=== PATIENT | male | born 1980 | race Caucasian/White ===

== ENCOUNTER 2017-01-17 17:04 | Emergency (ER) | payer SELFPAY ==
[~2017-01-17] VITALS: Ht 172.7 cm; Wt 117.9 kg
[~2017-01-17 17:04] MED LIST: AZIT-21 PO; CLIN300C3 PO; FLC150T PO; GUAI100L73 PO; HYDR-1231 PO; IBUP800T26 PO; MINO50CA2 PO; ONDA8TAB2 PO; PRD5T PO; SULF1TAB38 PO; TRAM50TA2 PO
--- OUTSIDE RECORDS SUMMARY | 2017-01-17 17:09 | XMS REPORT | Continuity of Care Document ---
Author Author [facility] Address Unknown Phone Unavailable Allergies Medications Problems Date Dx Coded Attending Type Code Diagnosis Diagnosed By 01/25/2009 466.0 Acute Bronchitis 01/25/2009 682.9 CELLULITIS AND ABSCESS OF UNSPECIFIED SITES 01/25/2009 BENITEZ DO KERRY K 466.0 Acute Bronchitis 01/25/2009 BENITEZ DO KERRY K 682.9 CELLULITIS AND ABSCESS OF UNSPECIFIED SITES 01/25/2009 BENITEZ DO KERRY K 466.0 Acute Bronchitis 01/25/2009 BENITEZ DO KERRY K 682.9 CELLULITIS AND ABSCESS OF UNSPECIFIED SITES 01/25/2009 KEVON WOMACK APRNINA R 466.0 Acute Bronchitis 01/25/2009 KEVON WOMACK APRNINA R 682.9 CELLULITIS AND ABSCESS OF UNSPECIFIED SITES 06/18/2010 110.9 Dermatophytosis, Of Unspecified Site 06/18/2010 111.0 Pityriasis Versicolor 06/18/2010 684 Impetigo 06/18/2010 EMMANUEL GUARDADO KERRY K 110.9 Dermatophytosis, Of Unspecified Site 06/18/2010 BENITEZ DO KERRY K 111.0 Pityriasis Versicolor 06/18/2010 BENITEZ DO KERRY K 684 Impetigo 06/18/2010 BENITEZ DO KERRY K 110.9 Dermatophytosis, Of Unspecified Site 06/18/2010 BENITEZ DO KERRY K 111.0 Pityriasis Versicolor 06/18/2010 BENITEZ DO KERRY K 684 Impetigo 06/18/2010 VU DUTTA GEORGE R 110.9 Dermatophytosis, Of Unspecified Site 06/18/2010 VU DUTTA GEORGE R 111.0 Pityriasis Versicolor 06/18/2010 VU DUTTA GEORGE R 684 Impetigo 04/08/2011 611.1 Hypertrophy Of Breast 04/08/2011 MIKE BENITEZ DOA K 611.1 Hypertrophy Of Breast 04/08/2011 KERRY BENITEZ DO 611.1 Hypertrophy Of Breast 04/08/2011 GEORGE WOMACK APRN 611.1 Hypertrophy Of Breast 08/14/2013 KERRY BENITEZ DO 780.79 fatigue 08/14/2013 KERRY BENITEZ DO 786.2 COUGH 08/14/2013 KERRY BENITEZ DO 780.79 fatigue 08/14/2013 KERRY BENITEZ DO 786.2 COUGH 08/14/2013 GEORGE WOMACK APRN 780.79 fatigue 08/14/2013 GEORGE WOMACK APRN 786.2 COUGH 12/28/2013 GEORGE WOMACK APRN 682.1 CELLULITIS AND ABSCESS OF NECK Procedures Code [place] [address] OXIM[employer] 2012 Results Encounters ACCT No. Visit Date/Time Discharge Status Pt. Type Provider Facility Loc./Unit Complaint [id number] 12/28/2013 14:51:00 12/28/2013 23: 59:59 CLS Outpatient GEORGE WOMACK APRN [id number] 12/25/2013 11:20:00 12/25/2013 23: 59:59 CLS Outpatient KERRY BENITEZ DO [id number] 08/14/2013 14:30:00 08/14/2013 23: 59:59 [place] [id number] 03/13/2012 10:35:00 03/13/2012 23: 59:59 CLS Outpatient
[2017-01-17] MEDS ORDERED: PANTOPRAZOLE 40 MG/10 ML (PROTONIX) VIAL IV ONE (17:45)
--- NOTE | 2017-01-17 17:50 | ED GI ---
General Chief Complaint: Abdominal/GI Problems Stated Complaint: STOMACH PAIN/VOMITING BLOOD Source of Information: Patient History of Present Illness Time Seen By Provider: 17:30 Initial Comments PT ARRIVES VIA POV C/O EPIGASTRIC AND LUQ PAIN /CRAMPING INTERMITTENTLY X 1 WEEK --Tuesday01/11/17 STATES HE HAD CHILLS ON TUESDAY ON TUESDAY HE BEGAN TO HAVE NAUSEA AND VOMITING AND DIARRHEA WAS BETTER OVER THE WEEKEND AND THIS MORNING THIS AFTERNOON, HE BEGAN TO HAVE NAUSEA AND VOMITED UP "BILE AND DARK BLOOD" HAS HAD DIARRHEA FOR THE LAST FEW DAYS, HAS HAD 2-3 STOOLS TODAY. NO BLACK/ BLOODY/TARRY STOOLS PT HAS HISTORY OF ULCERS AND ESOPHAGITIS 13 YEARS AGO, NO PROBLEMS SINCE THEN HAS NOT EATEN TODAY. LAST FOOD WAS BRATWURST AT 2130 LAST PM HAS BEEN AROUND PEOPLE WITH SAME SYMPTOMS PCP: PENNY Allergies and Home Medications Allergies Coded Allergies: No Known Drug Allergies (Unverified , 12/12/11) Home Medications Clindamycin Hcl 300 Mg Capsule #28 1 EACH PO QID Prescribed by: ELVIS HOGUE on 07/31/14 0838 Hydrocodone Bit/Acetaminophen 1 Tab Tablet #30 1-2 TAB PO Q6H PRN PRN PAIN Prescribed by: ELVIS HOGUE on 07/31/14 0838 Review of Systems Constitutional: no symptoms reported EENTM: No Symptoms Reported Respiratory: No Symptoms Reported Cardiovascular: No Symptoms Reported Gastrointestinal: See HPI Abdominal Pain Diarrhea Nausea Poor Appetite Vomiting Genitourinary: No Symptoms Reported Musculoskeletal: no symptoms reported Skin: no symptoms reported Psychiatric/Neurological: No Symptoms Reported Endocrine: No Symptoms Reported Hematologic/Lymphatic: See HPI Past Eqyoxck-Xtbnnx-Wdrwlr Hx Patient Social History Alcohol Use: Occasionally Uses Recreational Drug Use: Yes (THC) Smoking Status: Current Everyday Smoker (1 PPD) Type Used: Cigarettes Recent Foreign Travel: No Contact w/Someone Who Travel: No Surgeries HX Surgeries: Yes (EGD/COLONOSCOPY) Respiratory Hx Respiratory Disorders: Yes Respiratory Disorders: Pneumonia, Chronic Bronchitis Cardiovascular Hx Cardiac Disorders: No Neurological Hx Neurological Disorders: No Reproductive System Hx Reproductive Disorders: No Sexually Transmitted Disease: No Genitourinary Hx Genitourinary Disorders: No Gastrointestinal Hx Gastrointestinal Disorders: Yes Gastrointestinal Disorders: Esophagitis, Ulcer, Irritable Bowel Musculoskeletal Hx Musculoskeletal Disorders: No Endocrine Hx Endocrine Disorders: No HEENT HX ENT Disorders: No Cancer Hx Cancer: No Psychosocial Hx Psychiatric Problems: No Integumentary HX Skin/Integumentary Disorder: No Blood Transfusions Hx Blood Disorders: No Adverse Reaction to a Blood Tr: No Physical Exam Vital Signs Capillary Refill : General Appearance: WD/WN no apparent distress other (REEKS OF CIGARETTES) Neck: normal inspection Respiratory: normal breath sounds no respiratory distress no accessory muscle use Cardiovascular: regular rate, rhythm no murmur Gastrointestinal: normal bowel sounds soft no organomegaly no pulsatile massNo distended, No guarding, No rebound, tenderness (EPIGASTRIC AND LUQ TENDERNESS)No hernia, No mass Extremities: normal inspection Back: no CVA tenderness 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 no motor/sensory deficits alert normal mood/affect oriented x 3 Skin: normal color warm/dry Focused Exam Lactic Acid Level Laboratory Tests Test 01/17/17 17:47 Alanine Aminotransferase (ALT/SGPT) 55U/L (0-55) Albumin 4.5G/DL (3.2-4.5) Alkaline Phosphatase 67U/L (40-136) Amylase Level 54U/L (25-125) Anion Gap 11MMOL/L (5-14) Aspartate Amino Transf (AST/SGOT) 44U/L (5-34) H BUN/Creatinine Ratio 9 Blood Urea Nitrogen 7MG/DL (7-18) Calcium Level 9.3MG/DL (8.5-10.1) Carbon Dioxide Level 26MMOL/L (21-32) Chloride Level 107MMOL/L (98-107) Creatinine 0.82MG/DL (0.60-1.30) Estimat Glomerular Filtration Rate > 60 Glucose Level 89MG/DL (70-105) Lipase 11U/L (8-78) Potassium Level 3.9MMOL/L (3.6-5.0) Sodium Level 144MMOL/L (135-145) Total Bilirubin 0.5MG/DL (0.1-1.0) Total Protein 7.4G/DL (6.4-8.2) Progress/Results/Core Measures Results/Orders Lab Results Laboratory Tests Test 01/17/17 17:47 01/17/17 17:53 Range/Units Activated Partial Thromboplast Time 26 24-35 SEC Alanine Aminotransferase (ALT/SGPT) 55 0-55 U/L Albumin 4.5 3.2-4.5 G/DL Alkaline Phosphatase 67 40-136 U/L Amylase Level 54 25-125 U/L Anion Gap 11 5-14 MMOL/L Aspartate Amino Transf (AST/SGOT) 44 H 5-34 U/L BUN/Creatinine Ratio 9 Band Neutrophils 0 % Basophils # (Auto) 0.1 0.0-0.1 10^3/uL Basophils % (Manual) 0 % Basophils (%) (Auto) 1 0-10 % Blood Morphology Comment NORMAL Blood Urea Nitrogen 7 7-18 MG/DL Calcium Level 9.3 8.5-10.1 MG/DL Carbon Dioxide Level 26 21-32 MMOL/L Chloride Level 107 98-107 MMOL/L Creatinine 0.82 0.60-1.30 MG/DL Eosinophils # (Auto) 0.1 0.0-0.3 10^3/uL Eosinophils % (Manual) 0 % Eosinophils (%) (Auto) 0 0-10 % Estimat Glomerular Filtration Rate > 60 Glucose Level 89 70-105 MG/DL Hematocrit 48 40-54 % Hemoglobin 16.5 13.3-17.7 G/DL INR Comment 1.1 0.8-1.4 Lipase 11 8-78 U/L Lymphocytes # (Auto) 3.1 1.0-4.0 X 10^3 Lymphocytes % (Manual) 12 % Lymphocytes (%) (Auto) 21 12-44 % Mean Corpuscular Hemoglobin 31 25-34 PG Mean Corpuscular Hemoglobin Concent 35 32-36 G/DL Mean Corpuscular Volume 88 80-99 FL Mean Platelet Volume 11.3 H 7.4-10.4 FL Monocytes # (Auto) 1.0 0.0-1.0 X 10^3 Monocytes % (Manual) 1 % Monocytes (%) (Auto) 6 0-12 % Neutrophils # (Auto) 10.7 H 1.8-7.8 X 10^3 Neutrophils % (Manual) 79 % Neutrophils (%) (Auto) 72 42-75 % Platelet Count 211 130-400 10^3/uL Potassium Level 3.9 3.6-5.0 MMOL/L Prothrombin Time 14.1 12.2-14.7 SEC Reactive Lymphocytes 8 % Red Blood Count 5.38 4.35-5.85 10^6/uL Red Cell Distribution Width 13.8 10.0-14.5 % Sodium Level 144 135-145 MMOL/L Total Bilirubin 0.5 0.1-1.0 MG/DL Total Protein 7.4 6.4-8.2 G/DL White Blood Count 14.8 H 4.3-11.0 10^3/uL Urine Bacteria NEGATIVE /HPF Urine Bilirubin NEGATIVE NEGATIVE Urine Casts NONE /LPF Urine Clarity CLEAR Urine Color YELLOW Urine Crystals NONE /LPF Urine Culture Indicated NO Urine Glucose (UA) NEGATIVE NEGATIVE Urine Ketones NEGATIVE NEGATIVE Urine Leukocyte Esterase NEGATIVE NEGATIVE Urine Mucus NEGATIVE /LPF Urine Nitrite NEGATIVE NEGATIVE Urine Protein NEGATIVE NEGATIVE Urine RBC NONE /HPF Urine RBC (Auto) NEGATIVE NEGATIVE Urine Specific Gilliam 1.010 L 1.016-1.022 Urine Squamous Epithelial Cells NONE /HPF Urine Urobilinogen NORMAL NORMAL MG/DL Urine WBC NONE /HPF Urine pH 8 5-9 My Orders Orders-APOLINAR PLASCENCIA DO Saline Lock/Iv-Start (01/17/17 17:33) Amylase (01/17/17 17:33) Cbc With Automated Diff (01/17/17 17:33) Comprehensive Metabolic Panel (01/17/17 17:33) Lipase (01/17/17 17:33) Protime With Inr (01/17/17 17:33) Partial Thromboplastin Time (01/17/17 17:33) Ua Culture If Indicated (01/17/17 17:33) Saline Lock/Iv-Start (01/17/17 17:33) Pantoprazole Injection (Protonix Injecti (01/17/17 17:45) Ondansetron Injection (Zofran Injectio (01/17/17 18:00) Manual Differential (01/17/17 17:47) Ct Abdomen/Pelvis W (01/17/17 17:56) Iohexol Injection (Omnipaque 350 Mg/Ml 1 (01/17/17 18:00) Ns (Ivpb) (Sodium Chloride 0.9% Ivpb Bag (01/17/17 18:00) Medications Given in ED Current Medications Medications Dose Ordered Sig/Silvina Route Start Time Stop Time Status Last Admin Dose Admin Iohexol 100 ml ONCE ONCE IV 01/17/17 18:00 01/17/17 18:01 DC 01/17/17 18:17 100 ML Ondansetron HCl 8 mg ONCE ONCE IVP 320/17 18:00 01/17/17 18:01 DC 01/17/17 18:02 8 MG Pantoprazole 40 mg ONCE ONCE IV 01/17/17 17:45 01/17/17 17:46 DC 01/17/17 18:02 40 MG Sodium Chloride 100 ml ONCE ONCE IV 01/17/17 18:00 01/17/17 18:01 DC 01/17/17 18:17 80 ML Progress Note : Progress Note FEELS MUCH BETTER AT DISMISSAL--PAIN AND NAUSEA ARE GONE. NO VOMITING OR DIARRHEA DURING ER STAY Diagnostic Imaging Comments CT ABDOMEN/PELVIS--NON-SPECIFIC BOWEL GAS PATTERN, HEPATIC STEATOSIS--PER RADIOLOGIST REPORT @ 1855 Reviewed: Reviewed by Me Departure Impression Impression: Primary Impression: Gastroenteritis Additional Impression: POSSIBLE GASTRITIS Disposition: HOME, SELF-CARE Condition: Stable Departure-Patient Inst. Referrals: [facility] (PCP/Family) Primary Care Physician Patient Instructions: Viral Gastroenteritis, Adult (DC), Gastritis (DC) Add. Discharge Instructions: CLEAR LIQUIDS--WATER, BROTH, JELLO, GATORADE TOMORROW IF YOU ARE BETTER, ADD BRATS DIET TO CLEAR LIQUIDS--BANANAS, RICE, APPLESAUCE, TOAST, SALTINES FOLLOW UP WITH [facility] IN 2-3 DAYS IF NO BETTER All discharge instructions reviewed with patient and/or family. Voiced understanding. Scripts Ondansetron (Zofran Odt)4 Mg Tab.rapdis4 Mg PO Q4H Nausea/Vomiting #10 TAB Prov:APOLINAR PLASCENCIA DO 01/17/17 Pantoprazole Sodium (Protonix)40 Mg Tablet.dr40 Mg PO DAILY #15 TAB Prov:FELISHA PLASCENCIAA K DO 01/17/17 Lactobacillus Acidophilus (Acidophilus)1 Each Capsule2 Each PO QID #80 CAP Prov:THAIS,APOLINAR K DO 01/17/17 FELISHA PLASCENCIAA K DO Jan 17, 2017 17:50
[2017-01-17 17:53] LABS: BASOPHILS # (AUTO) 0.1 10^3/uL (0.0-0.1); BASOPHILS % (AUTO) 1 % (0-10); EOSINOPHILS # (AUTO) 0.1 10^3/uL (0.0-0.3); EOSINOPHILS % (AUTO) 0 % (0-10); LYMPHOCYTES # (AUTO) 3.1 X 10^3 (1.0-4.0); LYMPHOCYTES % (AUTO) 21 % (12-44); MEAN CORPUSCULAR HEMOGLOBIN 31 PG (25-34); MEAN CORPUSCULAR HGB CONC 35 G/DL (32-36); MEAN CORPUSCULAR VOLUME 88 FL (80-99); MEAN PLATELET VOLUME 11.3 FL (7.4-10.4); MONOCYTES % (AUTO) 6 % (0-12); NEUTROPHILS # (AUTO) 10.7 X 10^3 (1.8-7.8); NEUTROPHILS % (AUTO) 72 % (42-75); PLATELET COUNT 211 10^3/uL (130-400); RED BLOOD COUNT 5.38 10^6/uL (4.35-5.85); RED CELL DISTRIBUTION WIDTH 13.8 % (10.0-14.5); WHITE BLOOD COUNT 14.8 10^3/uL (4.3-11.0)
[2017-01-17] MEDS ORDERED: NS 100 ML (IVPB) BAG IV ONE (18:00)
[2017-01-17] MEDS ORDERED: IOHEXOL 350 MG/ML 100 ML (OMNIPAQUE 350) VIAL IV ONE (18:00)
[2017-01-17] MEDS ORDERED: ONDANSETRON 4 MG/2 ML (SDV) Z0FRAN IVP ONE (18:00)
[2017-01-17 18:01] LABS: BILIRUBIN,URINE NEGATIVE (NEGATIVE); KETONES,URINE NEGATIVE (NEGATIVE); LEUKOCYTE ESTERASE ,URINE NEGATIVE (NEGATIVE); NITRITE,URINE NEGATIVE (NEGATIVE); PH,URINE 8 (5-9); PROTEIN,URINE NEGATIVE (NEGATIVE); UROBILINOGEN,URINE NORMAL (NORMAL)
[2017-01-17 18:03] LABS: INR 1.1 (0.8-1.4); PROTHROMBIN TIME PATIENT 14.1 SEC (12.2-14.7)
[2017-01-17 18:11] LABS: ALANINE AMINOTRANSFERASE 55 U/L (0-55); ALBUMIN 4.5 G/DL (3.2-4.5); AMYLASE 54 U/L (25-125); ANION GAP 11 MMOL/L (5-14); ASPARTATE AMINO TRANSFERASE 44 U/L (5-34); BILIRUBIN,TOTAL 0.5 MG/DL (0.1-1.0); BLOOD UREA NITROGEN 7 MG/DL (7-18); BUN/CREATININE RATIO 9; CALCIUM 9.3 MG/DL (8.5-10.1); CARBON DIOXIDE 26 MMOL/L (21-32); CHLORIDE 107 MMOL/L (98-107); CREATININE SERUM 0.82 MG/DL (0.60-1.30); GFR ESTIMATED > 60; GLUCOSE 89 MG/DL (70-105); LIPASE 11 U/L (8-78); POTASSIUM 3.9 MMOL/L (3.6-5.0); SODIUM 144 MMOL/L (135-145); TOTAL PROTEIN 7.4 G/DL (6.4-8.2)
[2017-01-17 18:13] LABS: BAND NEUTROPHILS 0 %; BASOPHILS % (MANUAL) 0 %; EOSINOPHILS % (MANUAL) 0 %; LYMPHOCYTES % (MANUAL) 12 %; NEUTROPHILS % (MANUAL) 79 %; REACTIVE LYMPHOCYTES 8 %
--- NOTE | 2017-01-17 18:42 | Diagnostic Imaging Report ---
PROCEDURE: CT abdomen and pelvis with contrast. TECHNIQUE: Multiple contiguous axial images were obtained through the abdomen and pelvis after administration of intravenous contrast. INDICATION: Abdominal pain. COMPARISON: None. FINDINGS: Lung bases are clear. There is mild diffuse hepatic steatosis. No focal hepatic abnormality is seen. The portal vein is patent. Gallbladder appears unremarkable. The pancreas, spleen and adrenal glands appear unremarkable. There is a tiny low-density lesion in the right kidney which is probably a cyst. Kidneys otherwise appear unremarkable. Ureters and bladder appear grossly unremarkable. The appendix is normal. There are a few prominent fluid-filled small bowel loops in the upper abdomen. This may be related to a mild enteritis or ileus. An early or partial obstructive process would be difficult to entirely exclude but felt to be less likely. If symptoms persist, however, short-term followup may be of benefit. There is no adenopathy, free fluid or inflammatory change. The osseous structures appear unremarkable. Abdominal aorta appears normal in caliber. IMPRESSION: 1. There are a few fluid-filled prominent small bowel loops in the upper abdomen, probably related to an enteritis or mild ileus but nonspecific. An early or partial obstructive process would be difficult to entirely exclude. If symptoms persist, short-term followup study may be of benefit. 2. No additional abnormality is seen. The appendix is visualized and appears normal. 3. Mild diffuse hepatic steatosis and small right renal cyst is incidentally noted. Dictated by: Dictated on workstation # [id number]
[2017-01-17] MEDS ORDERED: ONDA4TAB8 PO (18:58)
[2017-01-17] MEDS ORDERED: PANT40TA2 PO (18:58)
[2017-01-17] MEDS ORDERED: LACT1CAP8 PO (18:58)
[2017-01-17 19:20] VITALS: BP 134/96
== END 2017-01-17 19:20 | disposition home or self-care (01) ==
LOC: EDUNIT# 17:04 → ER 17:05
DX: K52.9 Noninfective gastroenteritis and colitis, unspecified (principal); K76.0 Fatty (change of) liver, not elsewhere classified; N28.1 Cyst of kidney, acquired; F17.210 Nicotine dependence, cigarettes, uncomplicated
CPT/HCPCS: 36415; 74177; 80053; 81000; 82150; 83690; 85007; 85027; 85610; 85730; 96374; 96375

== ENCOUNTER 2022-07-11 22:39 | Emergency (ER) | payer BC ==
[~2022-07-11] VITALS: Ht 176 cm; Wt 99.7 kg
[~2022-07-11 22:39] MED LIST changes: +LACT1CAP8 PO; +ONDA4TAB8 PO; +PANT40TA2 PO
[2022-07-11] MEDS ORDERED: FAMOTIDINE 20 MG (PEPCID) TABLET PO STA (23:07)
[2022-07-11] MEDS ORDERED: LORazepam 0.5 MG (ATIVAN) TABLET PO STA (23:07)
[2022-07-11 23:13] LABS: BASOPHILS # (AUTO) 0.1 10^3/uL (0.0-0.1); BASOPHILS % (AUTO) 1 % (0-10); EOSINOPHILS # (AUTO) 0.2 10^3/uL (0.0-0.3); EOSINOPHILS % (AUTO) 1 % (0-10); HEMATOCRIT 48 % (40-54); HEMOGLOBIN 16.1 g/dL (13.3-17.7); LYMPHOCYTES # (AUTO) 3.8 10^3/uL (1.0-4.0); LYMPHOCYTES % (AUTO) 28 % (12-44); MEAN CORPUSCULAR HEMOGLOBIN 31 pg (25-34); MEAN CORPUSCULAR HGB CONC 34 g/dL (32-36); MEAN CORPUSCULAR VOLUME 92 fL (80-99); MEAN PLATELET VOLUME 11.3 fL (9.0-12.2); MONOCYTES # (AUTO) 1.1 10^3/uL (0.0-1.0); MONOCYTES % (AUTO) 8 % (0-12); NEUTROPHILS # (AUTO) 8.6 10^3/uL (1.8-7.8); NEUTROPHILS % (AUTO) 62 % (42-75); PLATELET COUNT 231 10^3/uL (130-400); WHITE BLOOD COUNT 13.8 10^3/uL (4.3-11.0)
[2022-07-11] MEDS ORDERED: ASPIRIN 81 MG CHEW (CHILDREN'S ASA) PO ONE (23:15)
[2022-07-11] MEDS ORDERED: ANTACID SUSP 30 ML UDC (MYLANTA) PO ONE (23:15)
[2022-07-11] MEDS ORDERED: LIDOCAINE 2% VISCOUS 15 ML UDC PO ONE (23:15)
[2022-07-11 23:18] LABS: ALBUMIN 4.5 GM/DL (3.2-4.5)
[2022-07-11 23:19] LABS: CHLORIDE 106 MMOL/L (98-107); POTASSIUM 3.8 MMOL/L (3.6-5.0); SODIUM 142 MMOL/L (135-145)
[2022-07-11 23:20] LABS: CALCIUM 9.6 MG/DL (8.5-10.1)
[2022-07-11 23:21] LABS: GLUCOSE 97 MG/DL (70-105); TOTAL PROTEIN 7.9 GM/DL (6.4-8.2)
[2022-07-11 23:22] LABS: CARBON DIOXIDE 19 MMOL/L (21-32)
[2022-07-11 23:23] LABS: BILIRUBIN,TOTAL 0.3 MG/DL (0.1-1.0)
[2022-07-11 23:24] LABS: ALKALINE PHOSPHATASE 80 U/L (40-136)
[2022-07-11 23:25] LABS: CREATININE SERUM 0.92 MG/DL (0.60-1.30); GFR ESTIMATED 107
[2022-07-11 23:26] LABS: BUN/CREATININE RATIO 13
[2022-07-11 23:28] LABS: ALANINE AMINOTRANSFERASE 71 U/L (0-55)
[2022-07-11 23:29] LABS: LIPASE 41 U/L (8-78)
--- NOTE | 2022-07-11 23:56 | ED Chest Pain ---
General Chief Complaint: Chest Pain Stated Complaint: CHEST PAIN - COUGH - CHILLS - SORE THROAT Nursing Triage Note: patient states tuesday started shortness of breath, now chest pain, shortness of breath chills. treated tuesday at clinic. states covid neg tuesday Source: patient Exam Limitations: no limitations History of Present Illness Date Seen by Provider: Jul 11, 2022 Time Seen by Provider: 22:40 Initial Comments Patient to the ER by private conveyance for chief complaint since Tuesday, 5 days ago he was having some chest pain described as pressure occasionally radiating to the back as well as his left shoulder. Not worse with feeding. Constant since then. He has been to the clinic at [facility] twice and both times he got an EKG and some labs and was told he was having a panic attack. This showed him some breathing exercises. He does have anxiety. He says he takes 10 mg lisinopril for blood pressure but whenever he checks his blood pressure away from the clinic his blood pressure is normal. He takes cholesterol medicines. No history of diabetes. He does smoke. He's mom had problems with heart disease and diabetes. No history of coronary disease personally. Occasional cough but no more than usual. No sore throat. He does have a little ache in his right ear and has felt some malaise, chills and body aches. He had a negative swab for COVID earlier in the week at [facility]. Allergies and Home Medications Allergies Coded Allergies: No Known Drug Allergies (Unverified , 12/12/11) Patient Home Medication List Home Medication List Reviewed: Yes Clindamycin Hcl (Cleocin Hcl) 300 Mg Capsule, 1 EACH PO QID Prescribed by: ELVIS HOGUE on 07/31/14837 Hydrocodone Bit/Acetaminophen (Hydrocodone-Apap 5-325 Tablet) 1 Tab Tablet, 1-2 TAB PO Q6H PRN for PAIN Prescribed by: ELVIS HOGUE on 07/31/14837 Lactobacillus Acidophilus (Acidophilus) 1 Each Capsule, 2 EACH PO QID Prescribed by: APOLINAR PLASCENCIA on 01/17/171857 Ondansetron (Zofran Odt) 4 Mg Tab.rapdis, 4 MG PO Q4H Prescribed by: APOLINAR PLASCENCIA on 01/17/171857 Pantoprazole Sodium (Protonix) 40 Mg Tablet.dr, 40 MG PO DAILY Prescribed by: APOLINAR PLASCENCIA on 01/17/17 6688 Review of Systems Review of Systems Constitutional: chills; No diaphoresis; malaise EENTM: No Blurred Vision, No Double Vision Respiratory: Cough; Denies Orthopnea; Shortness of Air; Denies Wheezing Cardiovascular: Chest Pain; Denies Lightheadedness Gastrointestinal: Denies Abdominal Pain, Denies Constipated, Denies Diarrhea Genitourinary: Denies Burning, Denies Discharge Musculoskeletal: No back pain, No joint pain All Other Systems Reviewed Negative Unless Noted: Yes Past Zzzpkkv-Lfiglk-Zcvgrf Hx Patient Social History Tobacco Use?: Yes Tobacco type used: Cigarettes Smoking Status: Current Everyday Smoker Use of E-Cig and/or Vaping dev: No Substance use?: Yes Substance type: Methamphetamine Additional substance use comme: history of Alcohol Use?: Yes Alcohol type: Beer Alcohol Frequency: Daily Pt feels they are or have been: No Immunizations Up To Date Influenza Vaccine Up-to-Date: No; Not Current Past Medical History Pneumonia, Chronic Bronchitis Reproductive Disorders: No Sexually Transmitted Disease: No Esophagitis, Ulcer, Irritable Bowel Adverse Reaction/Blood Tranf: No Physical Exam Vital Signs Vital Signs - First Documented 07/11/22 22:50 Temp 36.6 Pulse 110 Resp 20 B/P (MAP) 179/114 (135) Pulse Ox 96 O2 Delivery Room Air Capillary Refill : Less Than 3 Seconds Height, Weight, BMI Height: 5'8" Weight: 260lbs. oz. 117.674561ng; 32.00 BMI Method:Stated General Appearance: No Apparent Distress, WD/WN HEENT: PERRL/EOMI, TMs Normal, Normal ENT Inspection, Pharynx Normal, Moist Mucous Membranes Neck: Full Range of Motion, Normal Inspection Respiratory: No Chest Non Tender (Chest wall pain reproducible with direct palpation); Lungs Clear, Normal Breath Sounds, No Accessory Muscle Use, No Respiratory Distress Cardiovascular: Regular Rate, Rhythm, No Edema, Normal Peripheral Pulses Gastrointestinal: Normal Bowel Sounds, Non Tender, Soft Extremity: Normal Capillary Refill, Normal Inspection, No Pedal Edema Neurologic/Psychiatric: Alert, Oriented x3 Skin: Normal Color, Warm/Dry Progress/Results/Core Measures Results/Orders Lab Results Laboratory Tests Test 07/11/22 22:50 07/11/22 22:52 07/11/22 22:55 07/12/22 00:45 Range/Units White Blood Count 13.8 H 4.3-11.0 10^3/uL Red Blood Count 5.18 4.30-5.52 10^6/uL Hemoglobin 16.1 13.3-17.7 g/dL Hematocrit 48 40-54 % Mean Corpuscular Volume 92 80-99 fL Mean Corpuscular Hemoglobin 31 25-34 pg Mean Corpuscular Hemoglobin Concent 34 32-36 g/dL Red Cell Distribution Width 13.3 10.0-14.5 % Platelet Count 231 130-400 10^3/uL Mean Platelet Volume 11.3 9.0-12.2 fL Immature Granulocyte % (Auto) 1 % Neutrophils (%) (Auto) 62 42-75 % Lymphocytes (%) (Auto) 28 12-44 % Monocytes (%) (Auto) 8 0-12 % Eosinophils (%) (Auto) 1 0-10 % Basophils (%) (Auto) 1 0-10 % Neutrophils # (Auto) 8.6 H 1.8-7.8 10^3/uL Lymphocytes # (Auto) 3.8 1.0-4.0 10^3/uL Monocytes # (Auto) 1.1 H 0.0-1.0 10^3/uL Eosinophils # (Auto) 0.2 0.0-0.3 10^3/uL Basophils # (Auto) 0.1 0.0-0.1 10^3/uL Immature Granulocyte # (Auto) 0.1 0.0-0.1 10^3/uL Influenza Type A (RT-PCR) Not Detected Not Detecte Influenza Type B (RT-PCR) Not Detected Not Detecte SARS-CoV-2 RNA (RT-PCR) Not Detected Not Detecte Sodium Level 142 135-145 MMOL/L Potassium Level 3.8 3.6-5.0 MMOL/L Chloride Level 106 98-107 MMOL/L Carbon Dioxide Level 19 L 21-32 MMOL/L Anion Gap 17 H 5-14 MMOL/L Blood Urea Nitrogen 12 7-18 MG/DL Creatinine 0.92 0.60-1.30 MG/DL Estimat Glomerular Filtration Rate 107 BUN/Creatinine Ratio 13 Glucose Level 97 70-105 MG/DL Calcium Level 9.6 8.5-10.1 MG/DL Corrected Calcium 9.2 8.5-10.1 MG/DL Total Bilirubin 0.3 0.1-1.0 MG/DL Aspartate Amino Transf (AST/SGOT) 45 H 5-34 U/L Alanine Aminotransferase (ALT/SGPT) 71 H 0-55 U/L Alkaline Phosphatase 80 40-136 U/L Troponin I < 0.028 < 0.028 <0.028 NG/ML C-Reactive Protein High Sensitivity 0.26 0.00-0.50 MG/DL Total Protein 7.9 6.4-8.2 GM/DL Albumin 4.5 3.2-4.5 GM/DL Lipase 41 8-78 U/L My Orders Orders - MALORIE MARCELO Continuous Ekg Monitoring (07/11/22 22:50) Ekg Tracing (07/11/22 22:50) Covid 19 Inhouse Test (07/11/22 22:50) Influenza A And B By Pcr (07/11/22 22:50) Cbc With Automated Diff (07/11/22 23:07) Comprehensive Metabolic Panel (07/11/22 23:07) Hs C Reactive Protein (07/11/22 23:07) Lipase (07/11/22 23:07) Troponin I Nima (07/11/22 23:07) Lidocaine 2% Viscous 15 Ml (Xylocaine Vi (07/11/22 23:15) Famotidine Tablet (Pepcid Tablet) (07/11/22 23:07) Antacid Suspension (Mylanta Suspension (07/11/22 23:15) Aspirin Chewable Tablet (Baby Aspirin Ch (07/11/22 23:15) Lorazepam Tablet (Ativan Tablet) (07/11/22 23:07) Troponin I Nima (07/12/22 00:50) Nitroglycerin 0.4 Mg Btl 25's (Nitrostat (07/12/22 00:00) Chest Pa/Lat (2 View) (07/12/22 00:01) Medications Given in ED Current Medications Medications Dose Ordered Sig/Silvina Route Start Time Stop Time Status Last Admin Dose Admin Al Hydrox/Mg Hydrox/Simethicone 30 ml ONCE ONCE PO 07/11/22 23:15 07/11/22 23:16 DC 07/11/22 23:32 30 ML Aspirin 324 mg ONCE ONCE PO 07/11/22 23:15 07/11/22 23:16 DC 07/11/22 23:32 324 MG Lidocaine HCl 15 ml ONCE ONCE PO 07/11/22 23:15 07/11/22 23:16 DC 07/11/22 23:32 15 ML Nitroglycerin 0.4 mg NEEDED PRN SL 07/12/22 00:00 07/12/22 00:55 0.4 MG Vital Signs/I&O 07/11/22 07/12/22 22:50 01:04 Temp 36.6 Pulse 110 98 Resp 20 18 B/P (MAP) 179/114 (135) 108/77 (87) Pulse Ox 96 95 O2 Delivery Room Air Room Air Blood Pressure Mean: 135 Progress Progress Note #1: Time: 23:55 Progress Note COVID swab and flu swab are negative. Labs are unremarkable. Examination consistent with possible viral syndrome versus atypical ACS. First troponin is undetectable. We will do a delta troponin at 0050. The GI cocktail did not help his pain. We will give him nitroglycerin. If the patient's pain improves we can send him home with follow-up with a charge rn. Progress Note #2: Time: 01:18 Progress Note Patient resting comfortably. We will have him follow-up with cardiology. His pain is all but gone. He describes it is only there when he turns his head a certain way. Could be chest wall related. He certainly has some risk factors. Initial ECG Impression Date: Jul 11, 2022 Initial ECG Impression Time: 22:50 Initial ECG Rate: 109 Initial ECG Rhythm: S.Tach Initial ECG Intervals: Normal Initial ECG Impression: Normal Initial ECG Comparisson: No Previous ECG Available Comment Sinus tachycardia without clinically relevant ST elevation or depression. Diagnostic Imaging Diagonstic Imaging: Xray Plain Films/CT/US/NM/MRI: chest (2v) Comments No acute cardiopulmonary process on two-view chest x-ray. Reviewed: Reviewed Night [facility] Study Departure Impression Primary Impression: Chest pain Qualified Codes: R07.9 - Chest pain, unspecified Disposition: HOME, SELF-CARE Condition: Stable Departure-Patient Inst. Decision time for Depature: 01:22 Referrals: [facility] (PCP/Family) Primary Care Physician SUZANNE PORTILLO MD Patient Instructions: Chest Pain (DC) Add. Discharge Instructions: Call the charge rn, Dr. Portillo today in get scheduled for a follow-up appointment to further work-up your chest pain and see if it is related to your heart. All discharge instructions reviewed with patient and/or family. Voiced understanding. Copy Copies To 1: SUZANNE PORTILLO MD, TITUS J Jul 11, 2022 23:56
[2022-07-12] MEDS ORDERED: NITROGLYCERIN 0.4 MG SL TABS BTL 25'S SL PRN
[2022-07-12 02:09] VITALS: BP 124/77
--- NOTE | 2022-07-12 08:08 | Diagnostic Imaging Report ---
Indication: Chest pain. Compared: 08/06/2013 Findings: Lungs are clear. No failure, effusion or pneumothorax. Impression: No acute-appearing abnormality. Dictated by: Dictated on workstation # [id number]
== END 2022-07-12 02:22 | disposition home or self-care (01) ==
LOC: EDUNIT# 22:39 → ER 22:40
DX: R07.89 Other chest pain (principal); F17.210 Nicotine dependence, cigarettes, uncomplicated; Z82.49 Family history of ischemic heart disease and other diseases of the circulatory system; Z20.822 Contact with and (suspected) exposure to COVID-19; Z28.310 Unvaccinated for COVID-19
CPT/HCPCS: 36415; 71046; 80053; 83690; 84484; 85025; 86141; 87636; 93005

== ENCOUNTER → 2022-07-21 | Outpatient (CLI) | payer BC ==
[2022-07-21 14:06] VITALS: BP 136/70
--- NOTE | 2022-07-21 16:50 | Cardiology Stress Test Report ---
Stress Test Report Date of Procedure/Referring: Date of Procedure: Jul 21, 2022 [facility] Admitting Physician Admitting Physician: Attending Physician: Suzanne Portillo MD Indications: CP Baseline Heart Rate: 70 Baseline Blood Pressure: Blood Pressure Systolic: 136 Blood Pressure Diastolic: 70 Baseline EKG: Baseline EKG: NSR Summary/Conclusion: Summary: In summary, the patient started exercising with a baseline heart rate, blood pressure and EKG mentioned above Patient was able to exercise for a total of 9.30 minutes on Eliezer protocol, METs 11.1 Maximum heart rate 162 Maximum blood pressure 225/87 Stress EKG, Minimal nondiagnostic changes Recovery EKG , Return to baseline Conclusion: 1. Good exercise tolerance for a total of 9.30 minutes on Eliezer protocol, 11.1 METs, achieving 90 percent of maximum expected heart rate 2. Minimal nondiagnostic EKG changes with exercise returned to baseline during recovery 3. No arrhythmia was noted Copy Copies To 1: [facility] SUZANNE PORTILLO MD Jul 21, 2022 16:50
== END ==
LOC: CARD 13:00
PROVIDERS: ATTEND Internal Medicine Cardiovascular Disease
DX: I25.10 Atherosclerotic heart disease of native coronary artery without angina pectoris (principal); I10 Essential (primary) hypertension
CPT/HCPCS: 93017; C8929; 93306